=== PATIENT | female | born 1990 | race Caucasian/White ===

== ENCOUNTER 2018-09-21 08:00 | Outpatient (CLI) | payer MEDICAID | END 2018-09-21 23:59 | disposition home or self-care (01) | LOC: LAB.R 08:00 | PROVIDERS: ATTEND Registered Nurse | DX: Z11.3 Encounter for screening for infections with a predominantly sexual mode of transmission (principal) | CPT/HCPCS: 87491; 87591 ==

== ENCOUNTER 2018-09-29 08:00 | Outpatient (CLI) | payer MEDICAID | END 2018-09-29 23:59 | disposition home or self-care (01) | LOC: LAB.R 08:00 | PROVIDERS: ATTEND Registered Nurse | DX: N30.00 Acute cystitis without hematuria (principal) | CPT/HCPCS: 87086 ==

== ENCOUNTER 2018-10-14 18:26 | Emergency (ER) | payer MEDICAID ==
[2018-10-14 18:57] VITALS: BP 101/84
[2018-10-14 19:02] LABS: MUDS CUTOFF CONCENTRATIONS CUTOFF CONC BELOW:
[2018-10-14 19:09] LABS: BILIRUBIN,URINE NEGATIVE (NEGATIVE); GLUCOSE, URINE (UA) NEGATIVE (NEGATIVE); KETONES,URINE (UA) NEGATIVE (NEGATIVE); LEUKOCYTE ESTERASE, URINE SMALL (NEGATIVE); NITRITE,URINE NEGATIVE (NEGATIVE); OCCULT BLOOD,URINE TRACE-INTA (NEGATIVE); PROTEIN,URINE NEGATIVE (NEGATIVE); UROBILINOGEN,URINE 0.2 (NORMAL) E.U./dL (NORMAL)
[2018-10-14 19:10] LABS: CLARITY,URINE CLEAR (CLEAR)
[2018-10-14 19:10] LABS: HCG UR QUAL NEGATIVE
[2018-10-14 19:17] LABS: BACTERIA,URINE Moderate /HPF (None Seen); RBC,URINE 0-5 /HPF (0-5); SQUAMOUS EPITHELIAL CELL,UR FEW Squamous (<= Few)
[2018-10-14 19:18] LABS: AMPHETAMINE SCREEN,URINE NEGATIVE (NEGATIVE); BENZODIAZEPINES SCREEN, URINE NEGATIVE (NEGATIVE); COCAINE SCREEN URINE NEGATIVE (NEGATIVE); METHADONE SCREEN, URINE NEGATIVE (NEGATIVE); METHAMPHETAMINES SCREEN, URINE NEGATIVE (NEGATIVE); OPIATE SCREEN, URINE NEGATIVE (NEGATIVE); OXYCODONE SCREEN, URINE NEGATIVE (NEGATIVE); PROPOXYPHENE SCREEN, URINE NEGATIVE (NEGATIVE); TRICYCLIC ANTIDEPRESSANT,URINE NEGATIVE (NEGATIVE)
[2018-10-14] MEDS ORDERED: OLANZapine ODT 5 MG TABLET TL ONE (19:28)
--- NOTE | 2018-10-14 21:17 | ED Physician Documentation ---
PD HPI [facility] - Stated complaint Stated Complaint: ANXIETY - Chief complaint Chief Complaint: [facility] PD PAST MEDICAL HISTORY - Past Medical History Cardiovascular: None Respiratory: None Endocrine/Autoimmune: None GI: None CENSUS ENUMERATOR: None : None HEENT: None Psych: Depression, Anxiety, Post traumatic stress disorder Musculoskeletal: None Derm: None - Past Surgical History Past Surgical History: No - Present Medications Home Medications: Ambulatory Orders Medication Instructions Recorded Confirmed Hydrocodone/Acetaminophen 1 - 2 each PO Q6H PRN #15 tablet 02/01/15 [Hydrocodon-Acetaminophen 5-325] Ondansetron Odt [Zofran] 4 mg TL Q6H PRN #10 tablet 02/01/15 - Allergies Allergies/Adverse Reactions: Allergies Allergy/AdvReac Type Severity Reaction Status Date / Time No Known Drug Allergies Allergy Verified 10/14/18 18:57 - Social History Does the pt smoke?: Yes Smoking Status: Current every day smoker Does the pt drink ETOH?: No Does the pt have substance abuse?: Yes - Immunizations Immunizations are current?: No - POLST Patient has POLST: No Results - Vitals Vitals: Vital Signs - 24 hr 10/14/18 18:46 Temperature 36.3 C L Heart Rate 75 Respiratory 18 Rate Blood Pressure 101/84 H O2 Saturation 99 Oxygen O2 Source Room air - Labs Labs: Laboratory Tests 10/14/18 10/14/18 18:44 18:49 Urine Color LT. YELLOW Urine Clarity CLEAR Urine pH 8.0 H Ur Specific [place] 1.020 1.015 Urine Protein NEGATIVE Urine Glucose (UA) NEGATIVE Urine Ketones NEGATIVE Urine Occult Blood TRACE-INTA Urine Nitrite NEGATIVE Urine Bilirubin NEGATIVE Urine Urobilinogen 0.2 (NORMAL) Ur Leukocyte Esterase SMALL H Urine RBC 0-5 Urine WBC 11-25 H Ur Squamous Epith Cells FEW Squamous Urine Bacteria Moderate H Ur Microscopic Review INDICATED Urine Culture Comments INDICATED Urine HCG, Qual NEGATIVE Urine Opiates Screen NEGATIVE Ur Oxycodone Screen NEGATIVE Urine Methadone Screen NEGATIVE Ur Propoxyphene Screen NEGATIVE Ur Barbiturates Screen NEGATIVE Ur Tricyclics Screen NEGATIVE Ur Phencyclidine Scrn NEGATIVE Ur Amphetamine Screen NEGATIVE U Methamphetamines Scrn NEGATIVE U Benzodiazepines Scrn NEGATIVE Urine Cocaine Screen NEGATIVE U Cannabinoids Screen POSITIVE H
== END 2018-10-14 21:25 | disposition left against medical advice (07) ==
LOC: EDUNIT# → ED 18:26
DX: Z53.21 Procedure and treatment not carried out due to patient leaving prior to being seen by health care provider (principal)
CPT/HCPCS: 80306; 81001; 81025; 87086; 99282; A9270; 80053; 80307; 80320; 80329; 81003; 83690; 84443; 85025; 87077; 87181

== ENCOUNTER 2018-11-14 15:55 | Outpatient (CLI) | payer MEDICAID ==
--- NOTE | 2018-11-15 00:24 | Ultrasound Report ---
Reason: TEST POSITIVE Procedure Date: 11/14/2018 Accession Number: [id number] / [id number] Procedure: US - OB First Trimester CPT Code: FULL RESULT: EXAM: FIRST TRIMESTER OBSTETRIC ULTRASOUND (Less than 11 weeks) EXAM DATE: 11/14/2018 05:19 PM. CLINICAL HISTORY: test positive. LMP: Unsure, likely 09/27/2018. COMPARISONS: None. TECHNIQUE: Transabdominal and transvaginal ultrasound examination with static image documentation. CLINICAL DATES: EGA 6 weeks 6 days with OKSANA 07/04/2019 based on given LMP. ASSESSMENT: Gestational Sac: Single intrauterine. Mean gestational sac diameter: 11.5 mm = 5 weeks 2 days. Embryo: None visualized. Cardiac activity: None visualized. Yolk sac: 1.8 mm. Amniotic fluid: Not accurately assessed at this gestational age. Early placenta: Not visible at this gestational age. Other: No perigestational fluid collection demonstrated. MATERNAL STRUCTURES: Uterus: Anteverted. Unremarkable. Cervix: Closed. Right Ovary/Adnexa: The ovary measures 2.3 x 1.4 x 1.4 cm, volume 2.4 cc. Unremarkable. Left Ovary/Adnexa: The ovary measures 3.6 x 2.4 x 2.6 cm, volume 11.6 cc. Corpus luteum 1.9 x 2.1 x 2.1 cm. Free Fluid: None. Other: None. IMPRESSION: 1. Single intrauterine at EGA 5 weeks 2 days with OKSANA 07/15/2019 based on mean sac diameter, which is discordant with clinical dates. 2. Only the yolk sac visible, with no visible pole or heartbeat yet. RADIA
== END 2018-11-14 15:56 | disposition home or self-care (01) ==
LOC: DI 15:55
PROVIDERS: ATTEND Registered Nurse
DX: Z32.01 Encounter for pregnancy test, result positive (principal); Z3A.01 Less than 8 weeks gestation of pregnancy
CPT/HCPCS: 76801

== ENCOUNTER 2018-12-02 17:03 | Outpatient (CLI) | payer MEDICAID ==
--- NOTE | 2018-12-03 12:03 | Ultrasound Report ---
Reason: UNCERTAIN VIABILITY OF Procedure Date: 12/02/2018 Accession Number: [id number] / [id number] Procedure: US - OB First Trimester CPT Code: FULL RESULT: EXAM: FIRST TRIMESTER OBSTETRIC ULTRASOUND (Less than 11 weeks) EXAM DATE: 12/02/2018 05:17 PM. CLINICAL HISTORY: First trimester . LMP: Unknown. COMPARISONS: OB FIRST TRIMESTER 11/14/2018 4:49 PM. TECHNIQUE: Transabdominal and transvaginal ultrasound examination with static image documentation. ASSESSMENT: Gestational Sac: Single intrauterine. Mean gestational sac diameter: 32 mm = 8 weeks 2 days. Embryo: CRL (crown-rump length) 16.2 mm = 7 weeks 6 days. Cardiac activity: 161 beats per minute. Yolk sac: 5.3 mm. Amniotic fluid: Not accurately assessed at this gestational age. Early placenta: Not visible at this gestational age. Other: Tiny perigestational collection measuring 11 x 4 x 4 mm is present. MATERNAL STRUCTURES: Uterus: Anteverted. Unremarkable. Cervix: Closed. Right Ovary/Adnexa: The ovary measures 3.0 x 1.3 x 2.1 cm, volume 4.2 cc. Unremarkable. Left Ovary/Adnexa: The ovary measures 3.2 x 2.1 x 2.8 cm, volume 9.8 cc. Probable collapsed corpus luteal cyst is seen within, otherwise unremarkable. Free Fluid: Minor simple appearing fluid is seen in the dependent pelvis, within normal physiologic limits.. Other: None. IMPRESSION: 1. Single viable intrauterine at EGA 8 weeks 2 days based on crown-rump length. 2. Assigned dating is OKSANA 07/15/2019 based on current ultrasound. 3. Tiny perigestational fluid collection seen. RADIA
== END 2018-12-02 17:04 | disposition home or self-care (01) ==
LOC: DI 17:03
PROVIDERS: ATTEND Registered Nurse
DX: O36.80X0 Pregnancy with inconclusive fetal viability, not applicable or unspecified (principal); Z3A.08 8 weeks gestation of pregnancy
CPT/HCPCS: 76801

== ENCOUNTER 2018-12-08 08:00 | Outpatient (CLI) | payer MEDICAID ==
[2018-12-08 15:56] LABS: MUDS CUTOFF CONCENTRATIONS CUTOFF CONC BELOW:
[2018-12-08 16:19] LABS: AMPHETAMINE SCREEN,URINE NEGATIVE (NEGATIVE); BENZODIAZEPINES SCREEN, URINE NEGATIVE (NEGATIVE); COCAINE SCREEN URINE NEGATIVE (NEGATIVE); METHADONE SCREEN, URINE NEGATIVE (NEGATIVE); METHAMPHETAMINES SCREEN, URINE NEGATIVE (NEGATIVE); OPIATE SCREEN, URINE NEGATIVE (NEGATIVE); OXYCODONE SCREEN, URINE NEGATIVE (NEGATIVE); PROPOXYPHENE SCREEN, URINE NEGATIVE (NEGATIVE); TRICYCLIC ANTIDEPRESSANT,URINE NEGATIVE (NEGATIVE)
== END 2018-12-08 23:59 | disposition home or self-care (01) ==
LOC: LAB.R 08:00
PROVIDERS: ATTEND Registered Nurse
DX: Z33.1 Pregnant state, incidental (principal)
CPT/HCPCS: 80306; 80349; 81599

== ENCOUNTER 2019-03-06 14:05 | Outpatient (CLI) | payer MEDICAID | END 2019-03-06 14:06 | disposition EMS.NT | LOC: EMS 14:05 | PROVIDERS: ATTEND Surgery | DX: O99.89 Other specified diseases and conditions complicating pregnancy, childbirth and the puerperium (principal); F41.9 Anxiety disorder, unspecified; R11.0 Nausea; R42 Dizziness and giddiness ==